=== PATIENT | female | born 1990 | race Caucasian/White ===

== ENCOUNTER 2019-03-21 12:50 | Emergency (ER) | payer OTHER ==
[~2019-03-21] VITALS: Ht 162.6 cm; Wt 88.0 kg
[2019-03-21] MEDS ORDERED: ZYRTEC10 M3 PO (13:22)
[2019-03-21] MEDS ORDERED: FLONASE16 GM NS (13:22)
== END 2019-03-21 17:42 | disposition home or self-care (01) ==
LOC: ER 12:50
DX: K52.89 Other specified noninfective gastroenteritis and colitis (principal)